=== PATIENT | female | born 1995 | race Caucasian/White ===

== ENCOUNTER 2017-06-16 20:02 | Emergency (ER) | payer MEDICAID ==
[~2017-06-16] VITALS: Ht 154.9 cm; Wt 54.9 kg
[2017-06-16 20:05] VITALS: Ht 154.9 cm; Wt 54.9 kg
[2017-06-16 23:05] LABS: BASOPHIL % 0.9 % (0-2); RED CELL DISTRIBUTION WIDTH 14.3 % (11.5-14.5)
[2017-06-16 23:06] LABS: PLATELET COUNT 427 x10^3mcL (130-400)
[2017-06-16 23:23] LABS: CALCIUM 8.6 mg/dL (8.5-10.1); CARBON DIOXIDE 28.9 mmol/L (21-32); CHLORIDE SERUM 102 mmol/L (98-107); CREATININE SERUM 0.5 mg/dL (0.6-1.0); GFR1 > 60 mL/min; GLUCOSE SERUM 84 mg/dL (74-106); POTASSIUM SERUM 3.5 mmol/L (3.5-5.1); SODIUM SERUM 140 mmol/L (136-145)
[2017-06-16 23:28] LABS: ALKALINE PHOSPHATASE 66 U/L (46-116); ALT/SGPT 18 U/L (14-59); AST/SGOT 17 U/L (15-37); BILIRUBIN TOTAL 0.4 mg/dL (0.20-1.00); LIPASE 134 IU/L (73-393); TOTAL PROTEIN, SERUM 8.2 g/dL (6.4-8.2)
[2017-06-16 23:44] VITALS: BP 111/63
== END 2017-06-16 23:44 | disposition home or self-care (01) ==
LOC: ED 20:02
PROVIDERS: Emergency Medicine
DX: R10.11 Right upper quadrant pain (principal); K59.00 Constipation, unspecified; E78.00 Pure hypercholesterolemia, unspecified
CPT/HCPCS: 36415; Q0092